=== PATIENT | female | born 1965 | race Caucasian/White ===

== ENCOUNTER 2017-04-29 07:44 | Day surgery (SDCO) | payer OTHER ==
[~2017-04-29] VITALS: Ht 167.6 cm; Wt 103.2 kg
[2017-04-29 06:55] LABS: HCT 36.4 % (37.0-47.0); HGB 12.4 g/dl (12.5-16.0); MCH 29.9 pg (25.0-31.0); MCHC 34.1 g/dL (32.0-36.0); MCV 87.7 fL (78.0-100.0); MPV 8.8 fL (6.0-9.5); RBC 4.15 M/uL (4.20-5.40); RDW 13.1 % (11.5-14.0); WBC 6.5 K/uL (4.0-10.5)
[2017-04-29 07:12] LABS: CREATININE 0.8 mg/dL (0.5-1.0); POTASSIUM 3.4 mmol/L (3.5-5.1)
[2017-04-30 04:50] LABS: HCT 37.5 % (37.0-47.0); HGB 12.4 g/dl (12.5-16.0); MCH 29.6 pg (25.0-31.0); MCHC 33.1 g/dL (32.0-36.0); MCV 89.5 fL (78.0-100.0); MPV 9.1 fL (6.0-9.5); RBC 4.19 M/uL (4.20-5.40); RDW 13.5 % (11.5-14.0); WBC 8.5 K/uL (4.0-10.5)
[2017-04-30 05:09] LABS: CREATININE 0.7 mg/dL (0.5-1.0); POTASSIUM 3.9 mmol/L (3.5-5.1)
[2017-04-30] MEDS ORDERED: COLACE100 MG PO (08:04)
[2017-04-30] MEDS ORDERED: NORCO 5-325 TA1 EACH PO (08:05)
[2017-04-30] MEDS ORDERED: HCTZ25 MG PO (08:06)
[2017-04-30] MEDS ORDERED: CYMBALTA60 MG PO (08:06)
[2017-04-30] MEDS ORDERED: BUSPIRONE HCL10 MG PO (08:07)
[2017-04-30] MEDS ORDERED: DITROPAN5 MG PO (08:08)
[2017-04-30] MEDS ORDERED: TRAZODONE HCL300 MG PO (08:08)
[2017-04-30] MEDS ORDERED: VITAMIN D1000 UNI1 PO (08:09)
--- NOTE | 2017-04-30 09:04 | NUR ---
REVIEWED DISCHARGE INFORMATION, PRECAUTIONS, WHAT TO WATCH FOR AND APPOINTMENT INFORMATION WITH PT VERBALIZED UNDERSTANDING, DENIES PAIN OR DISCOMFORT IV DISCONTINUED
== END 2017-04-30 10:17 | disposition home or self-care (01) ==
LOC: FAS 07:44 → FMS 09:23
PROVIDERS: ADMIT Surgery
DX: K43.0 Incisional hernia with obstruction, without gangrene (principal); F32.9 Major depressive disorder, single episode, unspecified; K21.9 Gastro-esophageal reflux disease without esophagitis; I10 Essential (primary) hypertension; E78.00 Pure hypercholesterolemia, unspecified; G47.30 Sleep apnea, unspecified; M62.08 Separation of muscle (nontraumatic), other site; Z99.89 Dependence on other enabling machines and devices; F41.9 Anxiety disorder, unspecified; Z90.710 Acquired absence of both cervix and uterus; Z90.89 Acquired absence of other organs; Z90.721 Acquired absence of ovaries, unilateral; Z96.649 Presence of unspecified artificial hip joint; Z80.42 Family history of malignant neoplasm of prostate; Z80.3 Family history of malignant neoplasm of breast; Z79.899 Other long term (current) drug therapy
CPT/HCPCS: 36415; 80048; 94010; 94760; 94762; G0378; J0690; J1170; J1885; J2405; J2704; J2710; J3010

== ENCOUNTER 2021-01-27 15:17 | Emergency (ER) | payer OTHER ==
[~2021-01-27 15:17] MED LIST: BUSPIRONE HCL10 MG PO; COLACE100 MG PO; CYMBALTA60 MG PO; DITROPAN5 MG PO; HCTZ25 MG PO; NORCO 5-325 TA1 EACH PO; TRAZODONE HCL300 MG PO; VITAMIN D1000 UNI1 PO
[2021-01-27 19:37] LABS: BILIRUBIN NEGATIVE (NEGATIVE); BLOOD NEGATIVE Ery/uL (NEGATIVE); CLARITY CLEAR (CLEAR); COLOR YELLOW (YELLOW); GLUCOSE (U) NORMAL (NORMAL); LEUKOCYTES NEGATIVE Leu/uL (NEGATIVE); NITRITE NEGATIVE (NEGATIVE); PROTEIN NEGATIVE (NEGATIVE); SPECIFIC GRAVITY 1.025 (1.001-1.030); UROBILINOGEN 0.2 mg/dL (0.2-1.0)
== END 2021-01-27 19:36 | disposition home or self-care (01) ==
LOC: FER 15:17
PROVIDERS: Nurse Practitioner Family
DX: S39.012A Strain of muscle, fascia and tendon of lower back, initial encounter (principal); I10 Essential (primary) hypertension; Z87.440 Personal history of urinary (tract) infections; Z87.19 Personal history of other diseases of the digestive system; X50.0XXA Overexertion from strenuous movement or load, initial encounter; Y92.89 Other specified places as the place of occurrence of the external cause; Y99.0 Civilian activity done for income or pay
CPT/HCPCS: 72110; 81003; 87088; 96372; J1100; J1885

== ENCOUNTER 2021-11-18 12:12 | Emergency (ER) | payer OTHER ==
[2021-11-18] MEDS ORDERED: NORCO 5-325 TA1 EACH PO (13:28)
[2021-11-18] MEDS ORDERED: MEDROL 4MG DOSEP4 MG PO (13:28)
[2021-11-18] MEDS ORDERED: CYCLOBENZAPRINE10 MG PO (13:28)
== END 2021-11-18 14:15 | disposition home or self-care (01) ==
LOC: FER 12:12
DX: S39.012A Strain of muscle, fascia and tendon of lower back, initial encounter (principal); I10 Essential (primary) hypertension; M54.41 Lumbago with sciatica, right side; X50.1XXA Overexertion from prolonged static or awkward postures, initial encounter
CPT/HCPCS: 96372; 99283; J1100; J1885